=== PATIENT | male | born 1970 | race Caucasian/White ===

== ENCOUNTER 2016-04-02 11:13 | Emergency (ER) | payer SELFPAY ==
[2016-04-02] MEDS ORDERED: Acetaminophen/Codeine 30-300mg Tablet ONE (11:49)
[2016-04-02] MEDS ORDERED: Azithromycin 250 MG TAB ONE (11:50)
[2016-04-02] MEDS ORDERED: Benzonatate 100 MG CAP ONE (11:50)
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
== END 2016-04-02 12:00 | disposition home or self-care (01) ==
LOC: MADERS 11:13
DX: J20.9 Acute bronchitis, unspecified (principal); S40.012A Contusion of left shoulder, initial encounter; M62.838 Other muscle spasm; F17.210 Nicotine dependence, cigarettes, uncomplicated; X50.0XXA Overexertion from strenuous movement or load, initial encounter
CPT/HCPCS: 99283

== ENCOUNTER 2016-05-21 17:37 | Emergency (ER) | payer SELFPAY ==
[2016-05-21] MEDS ORDERED: Magnesium Citrate 300 ML BOT ONE (18:44)
[2016-05-21] MEDS ORDERED: HYDROcodone/Acetaminophen 5/325 mg Tablet ONE (18:44)
[2016-05-21] MEDS ORDERED: Clindamycin 150 MG CAP ONE (18:44)
[2016-05-21 18:55] LABS: #Basophils 0.2 thou/uL (0.0-0.2); #Eosinphils 0.3 thou/uL (0.0-0.7); #Lymphocytes 2.3 thou/uL (1.20-3.40); #Monocytes 1.5 thou/uL (0.11-0.59); #Neutrophils 13.7 thou/uL (1.40-6.50); %Basophils 0.9 % (0.0-1.0); %Eosinophils 1.6 % (0.0-10.0); %Lymphocytes 12.7 % (21.0-51.0); %Monocytes 8.1 % (0.0-10.0); %Neutrophils 76.7 % (42.0-75.0); Hemoglobin 13.4 g/dL (14.0-18.0); Mean Corpuscular HGB CONC 34.1 g/dL (32.0-36.0); Mean Corpuscular Hemoglobin 29.9 pg (27.0-31.0); Mean Corpuscular Volume 87.8 fl (80.0-94.0); Mean Platelet Volume 7.2 fL (7.4-10.4); Platelet Count 304 thou/uL (130-400); RBC Distribution Width 12.6 % (11.5-14.5); Red Blood Cell (RBC) Count 4.49 mill/uL (4.70-6.10); White Blood Cell (WBC) Count 17.9 thou/uL (4.8-10.8)
[2016-05-21 19:03] LABS: Anion Gap 16 mmol/L (10-20); BUN (Urea Nitrogen) 13 mg/dL (8.9-20.6); Calc. Creatinine Clearance 0 mL/min (70-130); Calcium 9.4 mg/dL (7.8-10.44); Carbon Dioxide 20 mmol/L (22-29); Chloride 103 mmol/L (98-107); Estimated GFR-MDRD 87; Glucose 93 mg/dL (70-105); Potassium 3.7 mmol/L (3.5-5.1); Sodium 135 mmol/L (136-145)
[2016-05-21] MEDS ORDERED: Fentanyl 100 MCG/2 ML VIAL ONE (19:47)
== END 2016-05-21 20:40 | disposition home or self-care (01) ==
LOC: MADERS 17:37
DX: L03.115 Cellulitis of right lower limb (principal); L02.415 Cutaneous abscess of right lower limb; F17.210 Nicotine dependence, cigarettes, uncomplicated
CPT/HCPCS: 36415; 80048; 85025; 87040; 96365; 96375; J3010; J3370; J7050

== ENCOUNTER 2016-06-19 14:54 | Emergency (ER) | payer SELFPAY ==
--- NOTE | 2016-06-19 15:40 | RAD ---
THREE VIEWS OF THE RIGHT HAND: INDICATION: Right hand pain. FINDINGS: No acute fracture or subluxation is evident. No radiopaque foreign body is noted. IMPRESSION: No acute osseous abnormality. POS: [facility]
--- NOTE | 2016-06-19 15:45 | RAD ---
LEFT HAND 3 VIEWS: HISTORY: Left hand pain. FINDINGS: No fracture, dislocation, or bony destruction is seen. The tiny radiopaque density in the soft tiss ues of the index finger at the level of the head of the head of the proximal phalanx located at the radial and volar aspect. This is suspicious for a radiopaque foreign body. POS: [facility]
[2016-06-19 15:53] LABS: #Basophils 0.1 thou/uL (0.0-0.2); #Eosinphils 0.5 thou/uL (0.0-0.7); #Lymphocytes 2.3 thou/uL (1.20-3.40); #Monocytes 0.6 thou/uL (0.11-0.59); #Neutrophils 2.9 thou/uL (1.40-6.50); %Basophils 0.9 % (0.0-1.0); %Eosinophils 8.4 % (0.0-10.0); %Lymphocytes 35.6 % (21.0-51.0); %Monocytes 9.5 % (0.0-10.0); %Neutrophils 45.7 % (42.0-75.0); Hemoglobin 13.6 g/dL (14.0-18.0); Mean Corpuscular HGB CONC 32.3 g/dL (32.0-36.0); Mean Corpuscular Volume 89.7 fl (80.0-94.0); Mean Platelet Volume 7.2 fL (7.4-10.4); Platelet Count 255 thou/uL (130-400); RBC Distribution Width 12.4 % (11.5-14.5); Red Blood Cell (RBC) Count 4.71 mill/uL (4.70-6.10); White Blood Cell (WBC) Count 6.4 thou/uL (4.8-10.8)
== END 2016-06-19 15:55 | disposition home or self-care (01) ==
LOC: MADERS 14:54
DX: S39.012A Strain of muscle, fascia and tendon of lower back, initial encounter (principal); M79.641 Pain in right hand; M79.642 Pain in left hand; R53.83 Other fatigue; Z98.890 Other specified postprocedural states; F17.210 Nicotine dependence, cigarettes, uncomplicated; X58.XXXA Exposure to other specified factors, initial encounter
CPT/HCPCS: 36415; 84443; 85025; 85652

== ENCOUNTER 2016-07-31 08:40 | Emergency (ER) | payer SELFPAY ==
[2016-07-31] MEDS ORDERED: Azithromycin 250 MG TAB ONE (09:03)
[2016-07-31] MEDS ORDERED: Sulfameth/Trimethoprim DS 800-160mg TAB ONE (09:03)
[2016-07-31] MEDS ORDERED: HYDROcodone/Acetaminophen 10/325 mg Tablet ONE (09:03)
== END 2016-07-31 09:14 | disposition home or self-care (01) ==
LOC: MADERS 08:40
DX: L03.115 Cellulitis of right lower limb (principal); F17.210 Nicotine dependence, cigarettes, uncomplicated; Z86.14 Personal history of Methicillin resistant Staphylococcus aureus infection
CPT/HCPCS: 99283

== ENCOUNTER 2016-08-08 13:40 | Emergency (ER) | payer SELFPAY ==
[2016-08-08] MEDS ORDERED: Clindamycin 150 MG CAP ONE (14:09)
[2016-08-08] MEDS ORDERED: Acetaminophen/Codeine 30-300mg Tablet ONE (14:09)
== END 2016-08-08 14:12 | disposition short-term general hospital (02) ==
LOC: MADERS 13:40
DX: L03.116 Cellulitis of left lower limb (principal); L03.115 Cellulitis of right lower limb; F17.210 Nicotine dependence, cigarettes, uncomplicated; Z86.14 Personal history of Methicillin resistant Staphylococcus aureus infection; Z98.890 Other specified postprocedural states
CPT/HCPCS: 99283

== ENCOUNTER 2016-08-10 03:56 | Emergency (ER) | payer SELFPAY ==
[2016-08-10] MEDS ORDERED: Ondansetron HCl/PF 4 MG/2 ML Vial ONE (04:41)
[2016-08-10] MEDS ORDERED: Fentanyl 100 MCG/2 ML VIAL ONE ×2 (04:41→05:40)
[2016-08-10] MEDS ORDERED: Clindamycin/D5W 600 mg/50 ml Premix Bag ONE ×2 (04:41→04:56)
[2016-08-10 05:05] LABS: #Basophils 0.1 thou/uL (0.0-0.2); #Eosinphils 0.1 thou/uL (0.0-0.7); #Lymphocytes 1.8 thou/uL (1.20-3.40); #Monocytes 1.3 thou/uL (0.11-0.59); #Neutrophils 11.6 thou/uL (1.40-6.50); %Basophils 0.7 % (0.0-1.0); %Eosinophils 0.9 % (0.0-10.0); %Lymphocytes 12.1 % (21.0-51.0); %Monocytes 8.6 % (0.0-10.0); %Neutrophils 77.7 % (42.0-75.0); Hemoglobin 13.4 g/dL (14.0-18.0); Mean Corpuscular HGB CONC 33.6 g/dL (32.0-36.0); Mean Corpuscular Hemoglobin 29.3 pg (27.0-31.0); Mean Corpuscular Volume 87.2 fl (80.0-94.0); Mean Platelet Volume 6.2 fL (7.4-10.4); Platelet Count 353 thou/uL (130-400); Red Blood Cell (RBC) Count 4.56 mill/uL (4.70-6.10); White Blood Cell (WBC) Count 14.9 thou/uL (4.8-10.8)
[2016-08-10 05:13] LABS: ALT (SGPT) 310 U/L (8-55); AST (SGOT) 435 U/L (5-34); Albumin 3.7 g/dL (3.5-5.0); Alkaline Phosphatase 156 U/L (40-150); Anion Gap 16 mmol/L (10-20); BUN (Urea Nitrogen) 11 mg/dL (8.9-20.6); Bilirubin, Total 1.2 mg/dL (0.2-1.2); Calc. Creatinine Clearance 0 mL/min (70-130); Calcium 9.2 mg/dL (7.8-10.44); Carbon Dioxide 24 mmol/L (22-29); Chloride 103 mmol/L (98-107); Estimated GFR-MDRD Greater than 90; Globulin 3.6 g/dL (2.4-3.5); Glucose 117 mg/dL (70-105); Potassium 4.2 mmol/L (3.5-5.1); Protein, Total 7.3 g/dL (6.0-8.3); Sodium 139 mmol/L (136-145)
[2016-08-10] MEDS ORDERED: Sodium Chloride 0.9% 1,000 ML BAG ONE (07:47)
--- NOTE | 2016-08-10 07:59 | RAD ---
LEFT KNEE 4 VIEWS: Date: 08/10/16 HISTORY: Fever. COMPARISON: None. FINDINGS: Trace joint effusion. Joint spaces preserved. No malalignment or fracture. IMPRESSION: Trace joint effusion. POS: [facility]
== END 2016-08-10 06:00 | disposition short-term general hospital (02) ==
LOC: MADERS 03:56
DX: L03.116 Cellulitis of left lower limb (principal); F17.210 Nicotine dependence, cigarettes, uncomplicated; Z79.2 Long term (current) use of antibiotics; Z79.899 Other long term (current) drug therapy
CPT/HCPCS: 36415; 80053; 85025; 87040; 96365; 96375; 96376; J2405; J3010; J3490; J7050

== ENCOUNTER 2016-08-26 22:34 | Emergency (ER) | payer OTHER, SELFPAY ==
[2016-08-26] MEDS ORDERED: traMADol HCl 50 MG TAB ONE ×2 (23:18)
[2016-08-26] MEDS ORDERED: Doxycycline Hyclate 100 MG VIAL ONE (23:18)
[2016-08-26] MEDS ORDERED: Doxycycline 100 MG CAP ONE (23:19)
== END 2016-08-26 23:27 | disposition home or self-care (01) ==
LOC: MADERS 22:34
DX: L03.116 Cellulitis of left lower limb (principal); F17.210 Nicotine dependence, cigarettes, uncomplicated
CPT/HCPCS: 99283

== ENCOUNTER 2016-09-04 15:53 | Emergency (ER) | payer SELFPAY ==
[2016-09-04] MEDS ORDERED: Morphine Sulfate 2 MG/ML SYRINGE ONE (16:20)
== END 2016-09-04 16:35 | disposition home or self-care (01) ==
LOC: MADERS 15:53
DX: K03.81 Cracked tooth (principal); F17.210 Nicotine dependence, cigarettes, uncomplicated; Z79.2 Long term (current) use of antibiotics; Z86.14 Personal history of Methicillin resistant Staphylococcus aureus infection
CPT/HCPCS: 96372; J2270

== ENCOUNTER 2016-09-04 22:32 | Emergency (ER) | payer SELFPAY ==
[2016-09-04] MEDS ORDERED: Ondansetron HCl/PF 4 MG/2 ML Vial ONE (22:46)
[2016-09-04] MEDS ORDERED: Lidocaine 1% w/Epinephrine 1:100K 20 ML VIAL ONE (23:07)
== END 2016-09-04 23:25 | disposition home or self-care (01) ==
LOC: MADERS 22:32
DX: K08.89 Other specified disorders of teeth and supporting structures (principal); Z79.899 Other long term (current) drug therapy; Z87.891 Personal history of nicotine dependence
CPT/HCPCS: 64400; J2001; J2405

== ENCOUNTER 2016-10-10 10:45 | Emergency (ER) | payer SELFPAY ==
[2016-10-10] MEDS ORDERED: Lidocaine 2% w/Epinephrine 1:200K 20 ML VIAL ONE (11:18)
== END 2016-10-10 10:50 | disposition home or self-care (01) ==
LOC: MADERS 10:45
DX: L02.411 Cutaneous abscess of right axilla (principal); F17.210 Nicotine dependence, cigarettes, uncomplicated
CPT/HCPCS: 10060; 87070; 87077; 87186; 87205

== ENCOUNTER 2016-11-10 22:22 | Emergency (ER) | payer OTHER, SELFPAY ==
[2016-11-10] MEDS ORDERED: HYDROcodone/Acetaminophen 10/325 mg Tablet ONE (22:53)
[2016-11-10] MEDS ORDERED: Phenergan/Codeine 10-6.25mg/5ml UDCUP ONE ×2 (22:54→22:55)
[2016-11-10] MEDS ORDERED: Azithromycin 250 MG TAB ONE (22:54)
--- NOTE | 2016-11-10 23:06 | RAD ---
EXAM: CHEST TWO VIEWS 11/10/16 COMPARISON: 10/27/12 HISTORY: Cough. Fever. FINDINGS: Normal cardiac silhouette. Pulmonary vessels and hilum are normal. No mass. No consolidation. No pn eumothorax or osseous abnormalities. IMPRESSION: No acute cardiopulmonary process. POS: [facility]
[2016-11-10 23:23] LABS: Red Blood Cell (RBC) Count 4.89 mill/uL (4.70-6.10)
[2016-11-10 23:24] LABS: #Lymphocytes 2.6 thou/uL (1.20-3.40); #Monocytes 0.8 thou/uL (0.11-0.59); #Neutrophils 3.9 thou/uL (1.40-6.50); %Basophils 0.9 % (0.0-1.0); %Eosinophils 8.4 % (0.0-10.0); %Lymphocytes 32.4 % (21.0-51.0); %Monocytes 9.8 % (0.0-10.0); %Neutrophils 48.4 % (42.0-75.0); Hemoglobin 13.8 g/dL (14.0-18.0); Mean Corpuscular HGB CONC 32.6 g/dL (32.0-36.0); Mean Corpuscular Hemoglobin 28.2 pg (27.0-31.0); Mean Corpuscular Volume 86.3 fL (80.0-94.0); Mean Platelet Volume 6.5 fL (7.4-10.4); Platelet Count 330 thou/uL (130-400); RBC Distribution Width 12.8 % (11.5-14.5)
[2016-11-10 23:25] LABS: #Basophils 0.1 thou/uL (0.0-0.2); #Eosinphils 0.7 thou/uL (0.0-0.7)
[2016-11-10] MEDS ORDERED: Benzonatate 100 MG CAP ONE (23:34)
[2016-11-11 03:56] LABS: Manual Diff?? NO
== END 2016-11-10 23:44 | disposition home or self-care (01) ==
LOC: MADERS 22:22
DX: J20.9 Acute bronchitis, unspecified (principal); F41.9 Anxiety disorder, unspecified; F17.210 Nicotine dependence, cigarettes, uncomplicated; Z79.2 Long term (current) use of antibiotics; Z79.899 Other long term (current) drug therapy
CPT/HCPCS: 36415; 71020; 85025; 87081; 87430

== ENCOUNTER 2016-12-16 00:23 | Emergency (ER) | payer SELFPAY | END 2016-12-16 00:50 | disposition home or self-care (01) | LOC: MADERS 00:23 | DX: M75.101 Unspecified rotator cuff tear or rupture of right shoulder, not specified as traumatic (principal); B35.3 Tinea pedis; F41.9 Anxiety disorder, unspecified; F17.210 Nicotine dependence, cigarettes, uncomplicated | CPT/HCPCS: 99283 ==

== ENCOUNTER 2016-12-23 10:55 | Emergency (ER) | payer SELFPAY ==
[2016-12-23] MEDS ORDERED: HYDROcodone/Acetaminophen 10/325 mg Tablet ONE (11:25)
[2016-12-23] MEDS ORDERED: Ciprofloxacin 500 MG TAB ONE (11:26)
[2016-12-23] MEDS ORDERED: Sulfameth/Trimethoprim DS 800-160mg TAB ONE (11:26)
== END 2016-12-23 11:37 | disposition home or self-care (01) ==
LOC: MADERS 10:55
DX: J34.0 Abscess, furuncle and carbuncle of nose (principal); F41.9 Anxiety disorder, unspecified; F17.210 Nicotine dependence, cigarettes, uncomplicated; Z79.899 Other long term (current) drug therapy
CPT/HCPCS: 99282

== ENCOUNTER 2016-12-24 13:59 | Emergency (ER) | payer SELFPAY ==
[2016-12-24] MEDS ORDERED: Bacitracin Zinc 1 Packet ONE (14:37)
[2016-12-24] MEDS ORDERED: Doxycycline 100 MG CAP ONE (14:37)
== END 2016-12-24 14:55 | disposition home or self-care (01) ==
LOC: MADERS 13:59
DX: K13.0 Diseases of lips (principal); F17.210 Nicotine dependence, cigarettes, uncomplicated; F41.9 Anxiety disorder, unspecified
CPT/HCPCS: 96372; J2270

== ENCOUNTER 2017-01-25 10:39 | Emergency (ER) | payer SELFPAY ==
[2017-01-25] MEDS ORDERED: Tetracaine 0.5% OPHTH SOLN/PF 4 ML BOT ONE (11:08)
[2017-01-25] MEDS ORDERED: HYDROcodone/Acetaminophen 5/325 mg Tablet ONE (11:40)
[2017-01-25] MEDS ORDERED: Metoclopramide HCl 10 MG TAB ONE (11:40)
[2017-01-25] MEDS ORDERED: diphenhydrAMINE 25 MG CAP ONE (11:40)
== END 2017-01-25 12:06 | disposition home or self-care (01) ==
LOC: MADERS 10:39
DX: H57.8 Other specified disorders of eye and adnexa (principal); F41.9 Anxiety disorder, unspecified; F17.210 Nicotine dependence, cigarettes, uncomplicated
CPT/HCPCS: 99284

== ENCOUNTER 2017-03-09 16:09 | Emergency (ER) | payer SELFPAY | END 2017-03-09 16:59 | disposition home or self-care (01) | LOC: MADERS 16:09 | DX: M75.01 Adhesive capsulitis of right shoulder (principal); F41.9 Anxiety disorder, unspecified; F17.210 Nicotine dependence, cigarettes, uncomplicated | CPT/HCPCS: 99283 ==

== ENCOUNTER 2017-06-07 15:16 | Emergency (ER) | payer SELFPAY ==
[2017-06-07] MEDS ORDERED: traMADol HCl 50 MG TAB ONE (16:05)
[2017-06-07] MEDS ORDERED: Cipro 250 MG TAB ONE (16:05)
[2017-06-07] MEDS ORDERED: Acetaminophen 500 MG TAB ONE (16:05)
--- NOTE | 2017-06-07 16:11 | RAD ---
LEFT FOOT THREE VIEWS: 06/07/17 HISTORY: 46-year-old male with history of injury following stepping on a board with nails. No fracture or dislocation or other significant acute process. No evidence for metallic density forei gn body. IMPRESSION: Unremarkable left foot. POS: [facility]
== END 2017-06-07 16:25 | disposition home or self-care (01) ==
LOC: MADERS 15:16
DX: S99.922A Unspecified injury of left foot, initial encounter (principal); F41.9 Anxiety disorder, unspecified; F17.210 Nicotine dependence, cigarettes, uncomplicated; W45.0XXA Nail entering through skin, initial encounter; Y99.0 Civilian activity done for income or pay

== ENCOUNTER 2017-09-11 20:54 | Emergency (ER) | payer OTHER, SELFPAY ==
[2017-09-11] MEDS ORDERED: Sulfameth/Trimethoprim DS 800-160mg TAB ONE (22:54)
[2017-09-11] MEDS ORDERED: Morphine 10 MG/ML VIAL ONE (22:54)
[2017-09-11] MEDS ORDERED: Clindamycin 150 MG CAP ONE (22:54)
== END 2017-09-11 23:17 | disposition home or self-care (01) ==
LOC: MADERS 20:54
DX: L01.00 Impetigo, unspecified (principal); B95.8 Unspecified staphylococcus as the cause of diseases classified elsewhere; F41.9 Anxiety disorder, unspecified; F17.210 Nicotine dependence, cigarettes, uncomplicated
CPT/HCPCS: 96372; J2270

== ENCOUNTER 2017-11-23 08:27 | Emergency (ER) | payer SELFPAY ==
[2017-11-23] MEDS ORDERED: Promethazine 25 MG TAB ONE (09:42)
[2017-11-23] MEDS ORDERED: Fentanyl 100 MCG/2 ML VIAL ONE (09:42)
[2017-11-23] MEDS ORDERED: HYDROcodone/Acetaminophen 10/325 mg Tablet ONE (10:30)
== END 2017-11-23 10:42 | disposition home or self-care (01) ==
LOC: MADERS 08:27
DX: K46.9 Unspecified abdominal hernia without obstruction or gangrene (principal); F17.210 Nicotine dependence, cigarettes, uncomplicated
CPT/HCPCS: 96372; J3010

== ENCOUNTER 2017-11-23 19:20 | Emergency (ER) | payer SELFPAY ==
[2017-11-23] MEDS ORDERED: HYDROcodone/Acetaminophen 10/325 mg Tablet ONE (20:00)
[2017-11-23] MEDS ORDERED: Promethazine 25 MG TAB ONE (20:13)
[2017-11-23] MEDS ORDERED: Fentanyl 100 MCG/2 ML VIAL ONE (20:13)
--- NOTE | 2017-11-23 20:31 | CT ---
CT ABDOMEN NONCONTRAST CT PELVIS NONCONTRAST: (urolithiasis protocol) DATE: 11/23/17 HISTORY: 46-year-old male with right flank pain. COMPARISON: 12/24/15. TECHNIQUE: IV injection of iodinated contrast media: none Oral contrast media: none FINDINGS: Other than for urolithiasis, the lack of IV and oral contrast limits the evaluation. There is a new finding of diffuse enlargement of the right iliacus muscle. Superior to that, there is moderate fat stranding, representing either edema or blood, in the right retroperitoneum, located po sterior to the ascending colon, inferior to the right kidney, and lateral to the right psoas muscle. This is also new since the previous CT. There is a punctate 1 mm calculus in a right renal calyx. There is mild malrotation of the right kidn ey. No hydroureteronephrosis. No left renal calculus. No ureteral or bladder calculus. Within the bradford itations of a noncontrast scan, no gross abnormality is identified involving the urinary bladder, abd ominal aorta, left kidney, adrenals, pancreas, liver, or spleen. No small bowel dilation. No signs of acute colonic diverticulitis. No ascites. Lung bases are clear. No bowel-containing abdominal hernia . Postsurgical changes of right inguinal region. The appendix is normal. IMPRESSION: 1. enlargement of the right iliacus muscle, and either edema or blood in the right retroperitone um superior to the right iliacus muscle. 2. Exact etiology is uncertain, but possibilities include intramuscular hematoma or myositis. 3. No obstructive uropathy. 4. Minimal right nephrolithiasis. GLORIA Jurado POS: [facility]
[2017-11-23] MEDS ORDERED: predniSONE 20 MG TAB ONE (21:01)
[2017-11-23] MEDS ORDERED: Diazepam 5 MG TAB ONE (21:01)
== END 2017-11-23 21:12 | disposition home or self-care (01) ==
LOC: MADERS 19:20
DX: S39.013A Strain of muscle, fascia and tendon of pelvis, initial encounter (principal); F17.210 Nicotine dependence, cigarettes, uncomplicated; F41.9 Anxiety disorder, unspecified; X58.XXXA Exposure to other specified factors, initial encounter
CPT/HCPCS: 74176; 96372; J3010; J7506

== ENCOUNTER 2017-12-02 16:50 | Emergency (ER) | payer SELFPAY | END 2017-12-02 16:51 | disposition left against medical advice (07) | LOC: MADERS 16:50 | DX: Z53.21 Procedure and treatment not carried out due to patient leaving prior to being seen by health care provider (principal) ==

== ENCOUNTER 2018-01-08 17:47 | Emergency (ER) | payer SELFPAY ==
[2018-01-08] MEDS ORDERED: Lidocaine 2% w/Epinephrine 1:200K 20 ML VIAL ONE (18:03)
[2018-01-08] MEDS ORDERED: Sulfameth/Trimethoprim DS 800-160mg TAB ONE (18:16)
[2018-01-08] MEDS ORDERED: Cephalexin 500 MG CAP ONE (18:16)
== END 2018-01-08 18:20 | disposition home or self-care (01) ==
LOC: MADERS 17:47
DX: L02.31 Cutaneous abscess of buttock (principal); L03.317 Cellulitis of buttock; F17.200 Nicotine dependence, unspecified, uncomplicated
CPT/HCPCS: 10060

== ENCOUNTER 2018-01-12 12:57 | Emergency (ER) | payer SELFPAY | END 2018-01-12 13:42 | disposition home or self-care (01) | LOC: MADERS 12:57 | DX: L02.31 Cutaneous abscess of buttock (principal); F17.210 Nicotine dependence, cigarettes, uncomplicated; Z79.899 Other long term (current) drug therapy | CPT/HCPCS: 99282 ==

== ENCOUNTER 2018-02-16 18:05 | Emergency (ER) | payer SELFPAY | END 2018-02-16 18:48 | disposition home or self-care (01) | LOC: MADERS 18:05 | DX: M54.5 Low back pain (principal); F17.210 Nicotine dependence, cigarettes, uncomplicated | CPT/HCPCS: 99281 ==

== ENCOUNTER 2018-09-10 12:37 | Emergency (ER) | payer SELFPAY ==
[2018-09-10] MEDS ORDERED: Ondansetron ODT 4 MG TAB ONE (13:24)
[2018-09-10] MEDS ORDERED: HYDROcodone/Acetaminophen 5/325 mg Tablet ONE (13:24)
--- NOTE | 2018-09-10 14:01 | ULT ---
Testicular ultrasound. HISTORY: [place] severe groin pain after picking up a chainsaw. Multiple longitudinal and transverse images of the testicles are obtained using multi hertz linear ar ray transducer. Real-time, color flow and spectral waveform Doppler analysis demonstrates both testicles to be of normal contour, axis and size with the right testicle measuring 3.0 x 2.0 x 3.2 cm and the left testicle measuring 3.1 x 2.4 x 3.0 cm. A small amount of free fluid seen adjacent to the left testicle. Good blood flow seen. No evidence of testicular torsion seen. No evidence of varicocele seen. IMPRESSION: no evidence of testicular torsion
[2018-09-10 14:08] LABS: Band 1 % (5-11); Eosinophils 2 % (0-10); Hemoglobin 13.8 g/dL (14.0-18.0); Lymphocytes 11 % (21-51); MDiff Complete? YES; Mean Corpuscular HGB CONC 32.4 g/dL (32.0-36.0); Mean Corpuscular Hemoglobin 27.6 pg (27.0-31.0); Mean Corpuscular Volume 85.2 fL (78.0-98.0); Mean Platelet Volume 6.8 fL (7.4-10.4); Monocytes 5 % (0-10); Neutrophil 81 % (42-75); Platelet Count 308 thou/uL (130-400); RBC Distribution Width 12.1 % (11.5-14.5); White Blood Cell (WBC) Count 12.4 thou/uL (4.8-10.8)
[2018-09-10 14:21] LABS: ALT (SGPT) 22 U/L (8-55); AST (SGOT) 20 U/L (5-34); Albumin 4.1 g/dL (3.5-5.0); Alkaline Phosphatase 97 U/L (40-150); Anion Gap 14 mmol/L (10-20); BUN (Urea Nitrogen) 12 mg/dL (8.9-20.6); Bilirubin, Total 0.3 mg/dL (0.2-1.2); Calc. Creatinine Clearance 0 mL/min (70-130); Calcium 9.9 mg/dL (7.8-10.44); Carbon Dioxide 25 mmol/L (22-29); Chloride 102 mmol/L (98-107); Estimated GFR-MDRD 79; Globulin 3.5 g/dL (2.4-3.5); Glucose 115 mg/dL (70-105); Potassium 3.7 mmol/L (3.5-5.1); Protein, Total 7.6 g/dL (6.0-8.3); Sodium 137 mmol/L (136-145)
--- NOTE | 2018-09-10 15:12 | CT ---
CT STONE PROTOCOL: 09/10/18 HISTORY: 47-year-old male with right sided abdominal pain and blood in the urine yesterday. FINDINGS: Absence of oral and IV contrast reduces the sensitivity of the exam particularly for the evaluation o f solid organs and bowel. The lung bases are clear. No free air or free fluid is seen in the abdomen or pelvis. The patient is post cholecystectomy. A punctate calculus is seen in the right kidney. No calculi is seen in the left kidney, either ureter or the urinary bladder. No hydroureteronephrosis seen on either side. The appe ndix is normal. IMPRESSION: 1. Punctate nonobstructing right renal calculus. No evidence of obstructive uropathy. 2. No evidence of appendicitis. POS: [facility]
[2018-09-10] MEDS ORDERED: Cyclobenzaprine 10 MG TAB ONE (15:57)
[2018-09-10 16:11] LABS: Bilirubin Negative (Negative); Blood, Urine Small (Negative); Clarity Clear (Clear); Glucose, Urine (Dipstick) Negative (Negative); Leukocyte Negative (Negative); Nitrite Negative (Negative); Protein, Urine (Dipstick) Negative (Neg-Trace); Specific Gravity, Urine 1.015 (1.005-1.030); Urobilinogen 0.2 mg/dL (0.2-1.0)
[2018-09-10 16:18] LABS: Bacteria/HPF None Seen HPF (None Seen); Squamous Epithelial 0-3 HPF (0-3); WBC/HPF None Seen HPF (0-3)
== END 2018-09-10 16:40 | disposition home or self-care (01) ==
LOC: MADERS 12:37
DX: S39.011A Strain of muscle, fascia and tendon of abdomen, initial encounter (principal); F17.210 Nicotine dependence, cigarettes, uncomplicated; X58.XXXA Exposure to other specified factors, initial encounter
CPT/HCPCS: 36415; 74176; 76870; 80053; 81003; 81015; 85025; 93976; Q0162

== ENCOUNTER 2018-09-14 03:24 | Emergency (ER) | payer SELFPAY ==
[2018-09-14] MEDS ORDERED: Acetaminophen 500 MG TAB ONE (03:45)
--- NOTE | 2018-09-14 08:04 | RAD ---
EXAM: XR Ribs Lt>=2 View W/PA CXR PROVIDED CLINICAL HISTORY: Trauma COMPARISON: None FINDINGS: Cardiac and mediastinal silhouettes is within normal limits. Lungs appear clear. No pleural fluid or pneumothorax apparent. No evidence for displaced left-sided rib fracture. IMPRESSION: No evidence for an acute process.
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
== END 2018-09-14 07:50 | disposition home or self-care (01) ==
LOC: MADERS 03:24
DX: S20.212A Contusion of left front wall of thorax, initial encounter (principal); S80.12XA Contusion of left lower leg, initial encounter; S10.93XA Contusion of unspecified part of neck, initial encounter; S00.03XA Contusion of scalp, initial encounter; Z71.6 Tobacco abuse counseling; F17.210 Nicotine dependence, cigarettes, uncomplicated; Y04.0XXA Assault by unarmed brawl or fight, initial encounter
CPT/HCPCS: 70450; 70486; 72125; 99406

== ENCOUNTER 2018-10-06 11:55 | Emergency (ER) | payer SELFPAY ==
[2018-10-06] MEDS ORDERED: Sulfameth/Trimethoprim DS 800-160mg TAB ONE (12:25)
[2018-10-06] MEDS ORDERED: Acetaminophen/Codeine 30-300mg Tablet ONE (12:25)
[2018-10-06] MEDS ORDERED: Silver Sulfadiazine 1% Cream 50 GM TUBE ONE (12:28)
== END 2018-10-06 12:50 | disposition home or self-care (01) ==
LOC: MADERS 11:55
DX: L03.113 Cellulitis of right upper limb (principal); F17.210 Nicotine dependence, cigarettes, uncomplicated
CPT/HCPCS: 99283

== ENCOUNTER 2018-12-28 08:36 | Emergency (ER) | payer SELFPAY ==
[2018-12-28] MEDS ORDERED: Cyclobenzaprine 10 MG TAB ONE (10:03)
--- NOTE | 2018-12-28 10:05 | RAD ---
Exam: XR Shoulder Lt 3 View STANDARD HISTORY: Left shoulder pain. COMPARISON: 01/21/2014. FINDINGS: There is an osseous density seen adjacent to the superolateral aspect of the humeral head. This osseo us density was seen on prior study in 2013 although does appear slightly smaller in size but may be partially obscured due to overlying humeral head. No acute fracture, dislocation, or other acute osseous abnormality is identified. IMPRESSION: 1. No acute osseous abnormality left shoulder. 2. Stable osseous density adjacent to the humeral head.
== END 2018-12-28 10:25 | disposition home or self-care (01) ==
LOC: MADERS 08:36
DX: S43.422A Sprain of left rotator cuff capsule, initial encounter (principal); F17.210 Nicotine dependence, cigarettes, uncomplicated; X58.XXXA Exposure to other specified factors, initial encounter

== ENCOUNTER 2019-01-22 13:42 | Emergency (ER) | payer SELFPAY | END 2019-01-22 13:57 | disposition home or self-care (01) | LOC: MADERS 13:42 | DX: M54.2 Cervicalgia (principal); F17.210 Nicotine dependence, cigarettes, uncomplicated; Z71.6 Tobacco abuse counseling | CPT/HCPCS: 99406 ==

== ENCOUNTER 2019-02-04 08:51 | Emergency (ER) | payer SELFPAY ==
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
[2019-02-04] MEDS ORDERED: Cyclobenzaprine 10 MG TAB ONE (10:11)
[2019-02-04] MEDS ORDERED: Acetaminophen 500 MG TAB ONE (10:11)
[2019-02-04] MEDS ORDERED: Naproxen 500 MG TAB ONE (10:14)
== END 2019-02-04 10:20 | disposition home or self-care (01) ==
LOC: MADERS 08:51
DX: S43.401A Unspecified sprain of right shoulder joint, initial encounter (principal); F17.210 Nicotine dependence, cigarettes, uncomplicated; W22.8XXA Striking against or struck by other objects, initial encounter

== ENCOUNTER 2019-05-14 13:55 | Emergency (ER) | payer SELFPAY | END 2019-05-14 14:50 | disposition home or self-care (01) | LOC: MADERS 13:55 | DX: J06.9 Acute upper respiratory infection, unspecified (principal) | CPT/HCPCS: 99283 ==

== ENCOUNTER 2019-05-19 08:30 | Emergency (ER) | payer SELFPAY ==
--- NOTE | 2019-05-19 09:08 | RAD ---
PA AND LATERAL CHEST: Date: 05/19/2019 HISTORY: Cough and fever. COMPARISON: 11/10/16 study. FINDINGS: Heart size and mediastinum are within normal limits. Lungs appear clear of any focal infiltrative pro cess. IMPRESSION: No active intrathoracic disease. POS: [facility]
== END 2019-05-19 09:28 | disposition home or self-care (01) ==
LOC: MADERS 08:30
DX: K52.9 Noninfective gastroenteritis and colitis, unspecified (principal); J18.9 Pneumonia, unspecified organism; J44.9 Chronic obstructive pulmonary disease, unspecified; F41.9 Anxiety disorder, unspecified; F17.200 Nicotine dependence, unspecified, uncomplicated; Z79.51 Long term (current) use of inhaled steroids; Z79.899 Other long term (current) drug therapy
CPT/HCPCS: 71046

== ENCOUNTER 2020-06-28 08:10 | Emergency (ER) | payer SELFPAY ==
[~2020-06-28 08:10] MED LIST: Sodium Chloride 0.9% 1,000 ML BAG ONE
[2020-06-28 09:03] LABS: #Basophils 0.1 thou/uL (0.0-0.2); #Eosinphils 1.2 thou/uL (0.0-0.7); #Lymphocytes 2.5 thou/uL (1.20-3.40); #Neutrophils 8.2 thou/uL (1.40-6.50); %Basophils 1.1 % (0.0-1.0); %Eosinophils 9.4 % (0.0-10.0); %Lymphocytes 19.1 % (21.0-51.0); %Monocytes 7.8 % (0.0-10.0); %Neutrophils 62.7 % (42.0-75.0); Hemoglobin 13.1 g/dL (14.0-18.0); Mean Corpuscular HGB CONC 30.1 g/dL (32.0-36.0); Mean Corpuscular Hemoglobin 27.2 pg (27.0-31.0); Mean Corpuscular Volume 90.5 fL (78.0-98.0); Platelet Count 697 thou/uL (130-400); RBC Distribution Width 12.5 % (11.5-14.5); White Blood Cell (WBC) Count 13.1 thou/uL (4.8-10.8)
[2020-06-28 09:21] LABS: ALT (SGPT) 44 U/L (8-55); AST (SGOT) 24 U/L (5-34); Albumin 4.1 g/dL (3.5-5.0); Alkaline Phosphatase 156 U/L (40-110); Anion Gap 15 mmol/L (10-20); BUN (Urea Nitrogen) 17 mg/dL (8.9-20.6); Bilirubin, Total 0.6 mg/dL (0.2-1.2); Calc. Creatinine Clearance 0 mL/min (70-130); Calcium 9.2 mg/dL (7.8-10.44); Carbon Dioxide 26 mmol/L (22-29); Chloride 104 mmol/L (98-107); Globulin 3.9 g/dL (2.4-3.5); Glucose 103 mg/dL (70-105); Lipase 35 U/L (8-78); Potassium 3.2 mmol/L (3.5-5.1); Sodium 142 mmol/L (136-145)
[2020-06-28 09:22] LABS: CRP (Inflammatory) 0.7 mg/dL (= or < 0.5)
== END 2020-06-28 10:30 | disposition home or self-care (01) ==
LOC: MADERS 08:10
DX: E86.0 Dehydration (principal); Z48.815 Encounter for surgical aftercare following surgery on the digestive system; R00.0 Tachycardia, unspecified; J44.9 Chronic obstructive pulmonary disease, unspecified; F17.220 Nicotine dependence, chewing tobacco, uncomplicated; Z87.19 Personal history of other diseases of the digestive system; Z79.899 Other long term (current) drug therapy
CPT/HCPCS: 74022; 80053; 82150; 82550; 83605; 83690; 85025; 86140; 87070; 87077; 87186; 87205; J7050